=== PATIENT | male | born 1980 | race Caucasian/White ===

== ENCOUNTER 2016-01-27 08:37 | Outpatient (RCR) | payer OTHER | END 2016-04-17 | LOC: WSOH | DX: S61.217D Laceration without foreign body of left little finger without damage to nail, subsequent encounter (principal) ==

== ENCOUNTER 2016-07-24 16:26 | Outpatient (RCR) | payer OTHER | END 2016-08-03 13:34 | LOC: WSOH 16:26 | DX: T23.261A Burn of second degree of back of right hand, initial encounter (principal); X14.1XXA Other contact with hot air and other hot gases, initial encounter; Y99.0 Civilian activity done for income or pay ==

== ENCOUNTER 2017-12-20 10:44 | Outpatient (RCR) | payer OTHER ==
[2017-12-27] MEDS ORDERED: NORCO 325 MG-7.1 TAB PO (09:20)
== END 2018-01-27 08:14 | disposition home or self-care (01) ==
LOC: WSOH 10:44
DX: S46.211A Strain of muscle, fascia and tendon of other parts of biceps, right arm, initial encounter (principal); X50.0XXA Overexertion from strenuous movement or load, initial encounter; Y93.E9 Activity, other interior property and clothing maintenance; Y92.59 Other trade areas as the place of occurrence of the external cause; Y99.0 Civilian activity done for income or pay

== ENCOUNTER 2017-12-27 05:08 | Day surgery (SDC) | payer OTHER ==
[~2017-12-27] VITALS: Ht 195.6 cm; Wt 127.0 kg
[2017-12-27 06:03] VITALS: BP 132/80; PULSE 66; TEMP 98.5
[2017-12-27 08:52] VITALS: BP 114/70; PULSE 70; TEMP 97.5
[2017-12-27 09:00] VITALS: BP 111/72; PULSE 70
[2017-12-27 09:15] VITALS: BP 121/77; PULSE 66
[2017-12-27] MEDS ORDERED: NORCO 325 MG-7.1 TAB PO (09:20)
== END 2017-12-27 10:00 | disposition home or self-care (01) ==
LOC: SDCO 05:08
DX: S46.211A Strain of muscle, fascia and tendon of other parts of biceps, right arm, initial encounter (principal); X50.0XXA Overexertion from strenuous movement or load, initial encounter
CPT/HCPCS: J1100; J1885; J2250; J2405; J2704; J2795; J3010; J7120

== ENCOUNTER 2018-03-11 13:33 | Outpatient (RCR) | payer OTHER ==
[~2018-03-11 13:33] MED LIST: NORCO 325 MG-7.1 TAB PO
== END 2018-06-09 | disposition home or self-care (01) ==
LOC: WSOH
DX: S61.012A Laceration without foreign body of left thumb without damage to nail, initial encounter (principal); W25.XXXA Contact with sharp glass, initial encounter; Y93.E9 Activity, other interior property and clothing maintenance; Y92.59 Other trade areas as the place of occurrence of the external cause; Y99.0 Civilian activity done for income or pay

== ENCOUNTER 2018-04-04 09:00 | Outpatient (RCR) | payer OTHER | END 2018-04-09 12:14 | disposition home or self-care (01) | LOC: WSPT 09:00 | DX: S46.211D Strain of muscle, fascia and tendon of other parts of biceps, right arm, subsequent encounter (principal) ==

== ENCOUNTER 2019-11-09 20:14 | Emergency (ER) | payer OTHER ==
[~2019-11-09] VITALS: Ht 198.1 cm; Wt 136.4 kg
[2019-11-09 20:20] VITALS: TEMP 97.1
[2019-11-09 20:51] VITALS: BP 146/95; PULSE 75
== END 2019-11-09 20:51 | disposition home or self-care (01) ==
LOC: COL.ER 20:14
DX: H72.91 Unspecified perforation of tympanic membrane, right ear (principal)

== ENCOUNTER 2019-12-31 08:39 | Day surgery (SDC) | payer OTHER ==
[~2019-12-31] VITALS: Ht 198.1 cm; Wt 137.0 kg
[2019-12-31 09:30] VITALS: BP 142/91; PULSE 62; TEMP 98.4
[2019-12-31 13:35] VITALS: BP 128/85; PULSE 76; TEMP 96.8
--- NOTE | 2019-12-31 13:35 | NUR ---
PATIENT TRANSPORTED PER CART ACCOMPANIED BY PACU STAFF. MONITORS REAPPLIED. VSS. AT BEDSIDE. PATIENT DENIES DISCOMFORT AND NAUSEA. PATIENT RESTS.
[2019-12-31 13:45] VITALS: BP 121/81; PULSE 76
--- NOTE | 2019-12-31 13:45 | NUR ---
VSS ON ROOM AIR. PATIENT DENIES DISCOMFORT AND NAUSEA. PATIENT REQUEST WATER TO DRINK. ELEVATED HEAD OF BED TO 40 DEGREES.
[2019-12-31] MEDS ORDERED: NORCO 325 MG-7.1 TAB PO (13:55)
[2019-12-31 14:00] VITALS: BP 121/81; PULSE 72
--- NOTE | 2019-12-31 14:00 | NUR ---
Tolerates water. Denies pain or nausea.
[2019-12-31 14:15] VITALS: BP 123/81; PULSE 74
--- NOTE | 2019-12-31 14:15 | NUR ---
Eating toast and drinking apple juice. Spouse in room.
[2019-12-31 14:30] VITALS: BP 124/74; PULSE 73
--- NOTE | 2019-12-31 14:30 | NUR ---
Tolerated toast and juice. Denies need for pain medications and denies nausea.
--- NOTE | 2019-12-31 14:40 | NUR ---
Assisted up to the bathroom and gait is steady. Voids and returns to room. IV discontinued and site free of redness or swelling. Cotton ball remains dry in the right ear. Able to dress self. Spouse remains in the room.
--- NOTE | 2019-12-31 14:51 | NUR ---
Dismissal instructions given and signed. Voices understanding of these and provided follow up appointment date and time.
--- NOTE | 2019-12-31 14:55 | NUR ---
Dismissed to home driven by spouse and taken to the front door per wheelchair by this RN and assisted into vehicle with instructions in hand.
== END 2019-12-31 14:55 | disposition home or self-care (01) ==
LOC: SDCO 08:39
DX: H72.91 Unspecified perforation of tympanic membrane, right ear (principal); Z20.828 Contact with and (suspected) exposure to other viral communicable diseases
CPT/HCPCS: J0690; J1100; J1885; J2405; J2704; J3010; J7120

== ENCOUNTER → 2021-01-06 | Outpatient (CLI) | payer OTHER | LOC: COL.RAD 14:28 | DX: R22.1 Localized swelling, mass and lump, neck (principal) | CPT/HCPCS: Q9967 ==